=== PATIENT | female | born 1995 | race Caucasian/White ===

== ENCOUNTER 2017-10-25 23:58 | Emergency (ER) | payer BC ==
[2017-10-26] MEDS ORDERED: LORazepam 1 MG TAB ONE (00:12)
[2017-10-26] MEDS ORDERED: LORazepam 1 MG TAB PO ONE (00:12)
--- NOTE | 2017-10-26 00:26 | EDPHY ---
H & P Smoking Status: Never smoked Time Seen by Provider: 10/26/17 00:07 HPI/ROS: CHIEF COMPLAINT: Chest pain and shortness of breath HISTORY OF PRESENT ILLNESS: Patient is a 22-year-old female who is currently going through a break-up for the last week here with reports of feeling like she is having an anxiety attack but also reports feeling chest pain and shortness of breath and feeling like she was going to pass out for the last couple of days. She has no history of syncope. She has no history of pulmonary embolism or DVT. She takes no oral estrogen. She does not smoke. She has no recent surgery or travel. She denies any hemoptysis or leg swelling. REVIEW OF SYSTEMS: Constitutional: No fever, no chills. Eyes: No discharge. ENT: No sore throat. Cardiovascular: + chest pain, no palpitations. Respiratory: No cough, + shortness of breath. Gastrointestinal: No abdominal pain, no vomiting. Genitourinary: No hematuria. Musculoskeletal: No back pain. Skin: No rashes. Neurological: No headache. (Isidro Sanches) Physical Exam: General Appearance: Tearful and anxious. Eyes: Pupils equal and round no injection. Respiratory: Chest is nontender, lungs are clear to auscultation. Cardiac: regular rate and rhythm. Gastrointestinal: Abdomen is soft and nontender, no masses, bowel sounds normal. Musculoskeletal: Neck is supple and nontender. Extremities have full range of motion and are nontender. Skin: No rashes or lesions. (Isidro Sanches) Constitutional: Initial Vital Signs Temperature (C) 36.6 C 10/26/17 00:00 Heart Rate 120 H 10/26/17 00:00 Respiratory Rate 20 10/26/17 00:00 Blood Pressure 151/104 H 10/26/17 00:00 O2 Sat (%) 97 10/26/17 00:00 O2 Delivery Mode Room Air Allergies/Adverse Reactions: No Known Allergies Allergy (Unverified 10/25/17 23:59) Home Medications: Medication Instructions Recorded Albuterol 08/17/15 Birthcontrol Pills 08/17/15 Medical Decision Making - Diagnostics EKG Interpretation: EKG: Complete interpretation has been separately recorded in the [facility] archive. Summary impression: Normal sinus rhythm (Mirian Campos) Differential Diagnosis: ACS, arrhythmia, WPW, Brugada, pulmonary embolism (Isidro Sanches) ED PA DICTATION I evaluated and participated in the management of the patient. I also evaluated the patient independently. My co-signature indicates that I have reviewed this chart and I agree with the findings and plan of care as documented. My personal H&P findings include: 22-year-old female presents with chest pain and shortness of breath in the setting of social stressors. Initially quite tachycardic. Symptoms improved significantly after receiving Ativan. Chest x-ray and EKG were unremarkable as well as basic labs. She felt well enough to go home. I have advised that she follow up with her primary care doctor for further evaluation if her symptoms continue. She and her parents were happy with this plan. (Mirian Campos) - Data Points Laboratory Results: Laboratory Results 10/26/17 00:30 10/26/17 00:30 10/26/17 10/26/17 00:30 00:30 WBC 6.60 10^3/uL 10^3/uL (3.80-9.50) RBC 4.62 10^6/uL 10^6/uL (4.18-5.33) Hgb 13.6 g/dL g/dL (12.6-16.3) Hct 41.0 % % (38.0-47.0) MCV 88.7 fL fL (81.5-99.8) MCH 29.4 pg pg (27.9-34.1) MCHC 33.2 g/dL g/dL (32.4-36.7) RDW 13.0 % % (11.5-15.2) Plt Count 270 10^3/uL 10^3/uL (150-400) MPV 11.7 fL fL (8.7-11.7) Neut % (Auto) 49.2 % % (39.3-74.2) Lymph % (Auto) 36.7 % % (15.0-45.0) Dickens % (Auto) 10.3 % % (4.5-13.0) Eos % (Auto) 2.7 % % (0.6-7.6) Baso % (Auto) 0.6 % % (0.3-1.7) Nucleat RBC Rel Count 0.0 % % (0.0-0.2) Absolute Neuts (auto) 3.25 10^3/uL 10^3/uL (1.70-6.50) Absolute Lymphs (auto) 2.42 10^3/uL 10^3/uL (1.00-3.00) Absolute Monos (auto) 0.68 10^3/uL 10^3/uL (0.30-0.80) Absolute Eos (auto) 0.18 10^3/uL 10^3/uL (0.03-0.40) Absolute Basos (auto) 0.04 10^3/uL 10^3/uL (0.02-0.10) Absolute Nucleated RBC 0.00 10^3/uL 10^3/uL (0-0.01) Immature Gran % 0.5 % % (0.0-1.1) Immature Gran # 0.03 10^3/uL 10^3/uL (0.00-0.10) Sodium 144 mEq/L mEq/L (135-145) Potassium 3.8 mEq/L mEq/L (3.3-5.0) Chloride 110 mEq/L mEq/L (97-110) Carbon Dioxide 19 mEq/l L mEq/l (22-31) Anion Gap 15 mEq/L mEq/L (8-16) BUN 10 mg/dL mg/dL (7-23) Creatinine 0.7 mg/dL mg/dL (0.6-1.0) Estimated GFR > 60 Glucose 109 mg/dL H mg/dL (70-100) Calcium 10.0 mg/dL mg/dL (8.5-10.4) Medications Given: Discontinued Medications Hydroxyzine HCl (Hydroxyzine Hcl) 25 mg PO ONCE ONE Stop: 10/26/17 00:44 Last Admin: 10/26/17 01:40 Dose: Not Given Lorazepam (Ativan) 1 mg PO ONCE ONE Stop: 10/26/17 00:13 Last Admin: 10/26/17 00:13 Dose: 1 mg Departure - Departure Disposition: Home, Routine, Self-Care Clinical Impression: Chest pain Condition: Good Instructions: Noncardiac Chest Pain (ED) Additional Instructions: Please follow-up with your primary care doctor in 1-2 days. Referrals: Sarah Berry PA [Primary Care Provider] - As per Instructions
[2017-10-26] MEDS ORDERED: hydrOXYzine HCL 25 MG TAB PO ONE (00:43)
[2017-10-26 01:08] LABS: PLATELET COUNT 270 10^3/uL (150-400)
[2017-10-26 01:35] VITALS: BP 103/65
--- NOTE | 2017-10-26 05:44 | CPEKG ---
Test Reason : OPEN Blood Pressure : / mmHG Vent. Rate : 072 BPM Atrial Rate : 069 BPM P-R Int : 108 ms QRS Dur : 087 ms QT Int : 387 ms P-R-T Axes : 010 068 038 degrees QTc Int : 424 ms Sinus rhythm Short NV interval Confirmed by Mirian Campos ([id number]) on 10/26/2017 5:43:17 AM Referred By: Confirmed By:Mirian Campos
== END 2017-10-26 01:34 | disposition home or self-care (01) ==
DX: R07.9 Chest pain, unspecified (principal)